=== PATIENT | male | born 1955 | race Caucasian/White ===

== ENCOUNTER 2016-10-28 21:47 | Emergency (ER) | payer SELFPAY ==
[2016-10-28 22:41] VITALS: BP 169/81
--- NOTE | 2016-10-28 23:02 | ER Document Report ---
HPI - HPI Patient complains to provider of: laceration to the finger Pain Level: 4 Context: Patient is 61-year-old male that comes emergency department for chief complaint of accidental laceration with a soaker meat to the right 5th digit. Patient reports difficulty stopping bleeding at home. Patient states he is up-to-date on his tetanus within 3 years. Patient denies blood thinner use. - DERM Skin Color: Normal Past Medical History - General Information source: Patient - Social History Smoking Status: Current Every Day Smoker Chew tobacco use (# tins/day): No Frequency of alcohol use: None Lives with: Family Family History: Reviewed & Not Pertinent Patient has suicidal ideation: No Patient has homicidal ideation: No Renal/ Medical History: Denies: Hx Peritoneal Dialysis - Immunizations Immunizations up to date: Yes Hx Diphtheria, Pertussis, Tetanus Vaccination: Yes Vertical Provider Document - CONSTITUTIONAL General Appearance: WD/WN, No Apparent Distress - INFECTION CONTROL TRAVEL OUTSIDE OF THE [place] IN LAST 30 DAYS: No - HEENT HEENT: Atraumatic, Normocephalic - NECK Neck: Normal Inspection - RESPIRATORY Respiratory: Breath Sounds Normal, No Respiratory Distress O2 Sat by Pulse Oximetry: 96 - CARDIOVASCULAR Cardiovascular: Regular Rate, Regular Rhythm - GI/ABDOMEN Gastrointestinal: Abdomen Soft, Abdomen Non-Tender - MUSCULOSKELETAL/EXTREMETIES Musculoskeletal/Extremeties: Tender - There is a superficial avulsion of the skin over the lateral aspect of the fifth digit of the right hand adjacent to the nail, there is fairly steady bleeding, there is normal DIP and PIP range of motion, there is normal capillary refill and sensation. Course - Re-evaluation Re-evalutation: Cleaned with surgical cleanser, used silver nitrate to stop the capillary bed flow at the avulsion site, cleaned again, dressed with Xeroform, Telfa, Gila wrap, tape. Discussed treatment, follow-up, return precautions. Patient states understanding and agreement. - Vital Signs Vital signs: Temp Pulse Resp BP Pulse Ox 98.7 F 70 18 169/81 H 96 10/28/16 22:39 10/28/16 22:39 10/28/16 22:39 10/28/16 22:39 10/28/16 22:39 Discharge - Discharge Clinical Impression: Finger avulsion Qualifiers: Encounter type: initial encounter Qualified Code(s): S61.209A - Unspecified open wound of unspecified finger without damage to nail, initial encounter Condition: Stable Disposition: HOME, SELF-CARE Additional Instructions: There is a superficial avulsion injury to your finger, keep the current dressing on for 2 days. Elevate the finger if needed. After 2 days take the current dressing off, clean gently with soap and water, apply bacitracin dressing. Return immediately for any redness, swelling, or any other signs of infection. Forms: Return to Work, Elevated Blood Pressure
== END 2016-10-28 23:00 | disposition home or self-care (01) ==
LOC: ER 21:47
DX: S61.209A Unspecified open wound of unspecified finger without damage to nail, initial encounter (principal); W45.8XXA Other foreign body or object entering through skin, initial encounter; F17.210 Nicotine dependence, cigarettes, uncomplicated
CPT/HCPCS: 99282